=== PATIENT | female | born 1975 | race Caucasian/White ===

== ENCOUNTER 2019-04-20 08:55 | Emergency (ER) | payer BC ==
[~2019-04-20] VITALS: Ht 152.4 cm; Wt 59.1 kg
[2019-04-20 08:56] VITALS: BP 169/98; PULSE 99; RESP 22; Ht 152.4 cm; Wt 59.1 kg
== END 2019-04-20 09:37 | disposition home or self-care (01) ==
LOC: E/R 08:55
DX: T17.908A Unspecified foreign body in respiratory tract, part unspecified causing other injury, initial encounter (principal); X58.XXXA Exposure to other specified factors, initial encounter; Y92.9 Unspecified place or not applicable
CPT/HCPCS: 71045